=== PATIENT | female | born 1990 | race Caucasian/White ===

== ENCOUNTER 2017-09-24 11:57 | Emergency (ER) | payer BC, OTHER ==
[~2017-09-24] VITALS: Ht 157.5 cm; Wt 48.0 kg
[~2017-09-24 11:57] MED LIST: ALBU1AER9 INH; BCPILLS PO; FLUT0.0529 NAE; SERT-234 PO; [UNRECOGNIZED DRUG - CODE] SQ
[2017-09-24 12:01] VITALS: BP 135/80; PULSE 95; TEMP 36.7; O2SAT 99; Ht 157.5 cm; Wt 48.0 kg
--- NOTE | 2017-09-24 12:13 | EMERGENCY ROOM VISIT NOTE ---
ED Visit Note First contact with patient: 12:02 CHIEF COMPLAINT: Cat bite right hand HISTORY OF PRESENT ILLNESS: This 27-year-old female presents to ER with chief complaint of a cat bite to her right hand. 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 The patient's tetanus is up-to-date. The cats immunizations are up-to-date. The patient also states that she has a small puncture to the left forearm but that did not bleed. REVIEW OF SYSTEMS: 6 system review was performed and was negative unless stated otherwise in history of present illness. PMH: The patient is healthy; there is no significant medical or surgical history. SOCIAL HISTORY: Patient lives at home. PHYSICAL EXAM: Vital Signs: Were reviewed reviewed Nurse's notes. GENERAL: 27- year-old female appears in no acute distress. MENTAL Status: Alert and oriented 3. RIGHT HAND: There are 2 puncture wounds on the dorsal aspect of the right hand 1 over the first metacarpal and one on the proximal phalanx of the third digit. The patient can ask flex and extend her fingers without difficulty. LEFT FOREARM: There is a small puncture wound on the medial aspect without any active bleeding. EMERGENCY DEPARTMENT COURSE: The patient was evaluated. All wounds were cleansed and antibiotic ointment and bandages applied. Animal bite form was completed. The patient was given Augmentin 875 mg while in the ER. The patient was discharged home in stable condition. DIAGNOSIS: Cat bite right hand DISCHARGE INSTRUCTIONS & TREATMENT: Watch the area carefully for signs of infection such as redness, swelling, or tenderness. If any should occur, return to ER for IV antibiotic treatment. Take Augmentin as prescribed. Antibiotic ointment and a bandage to the areas for 2-3 days. Tylenol and/or ibuprofen as needed for pain. Problem List Surgical Problems: (1) S/P appendectomy Status: Resolved Current/Historical Medications Scheduled Control Pills ( Control Pills), 1 TAB PO DAILY Fluticasone Propionate (Nasal) (Flonase), 2 SPRAYS AGATA DAILY Rabies Vaccine, Pcec (Rabavert), 1 DOSE SQ DIRECTED Sertraline (Zoloft), 150 MG PO DAILY Scheduled PRN Albuterol (Proair Hfa), 2 PUFF INH for Wheezing Allergies Coded Allergies: No Known Allergies (Verified , 12/01/14) Vital Signs Date Time Temp Pulse Resp B/P (MAP) Pulse Ox O2 Delivery O2 Flow Rate FiO2 09/24/17 12:01 36.7 95 16 135/80 99 Room Air Departure Information Referrals No Doctor, Assigned (PCP) Patient Instructions [facility]
[2017-09-24] MEDS ORDERED: AMOXICILLIN/CLAVULANATE TAB 875 MG TAB PO ONE (12:15)
[2017-09-24] MEDS ORDERED: AMOX875T PO (12:17)
== END 2017-09-24 12:29 | disposition home or self-care (01) ==
LOC: C.EDB 11:58 → C.EDD 12:29
DX: S61.451A Open bite of right hand, initial encounter (principal); W55.01XA Bitten by cat, initial encounter; Z79.3 Long term (current) use of hormonal contraceptives